=== PATIENT | male | born 1990 | race Caucasian/White ===

== ENCOUNTER 2018-06-22 13:40 | Emergency (ER) | payer SELFPAY ==
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
[2018-06-22 14:55] VITALS: BP 118/82
== END 2018-06-22 14:56 | disposition home or self-care (01) ==
LOC: MW.ED 13:40
DX: F32.9 Major depressive disorder, single episode, unspecified (principal); G47.00 Insomnia, unspecified; M79.10 Myalgia, unspecified site
CPT/HCPCS: 99283